=== PATIENT | female | born 1975 | race Caucasian/White ===

== ENCOUNTER 2021-06-26 00:32 | Outpatient (CLI) | payer MEDICARE, SELFPAY ==
--- NOTE | 2021-06-26 08:00 | DI.US_ITS ---
Exam(s) US PELVIS TRANSVAGINAL EXAM: US PELVIS TRANSVAGINAL CLINICAL HISTORY: Evaluate anatomy, endometrial stripe,dysfunctional uterine bleeding,n93.8 TECHNIQUE: Ultrasound of the pelvis was performed both transabdominal and transvaginal. COMPARISON: No exams were available for comparison FINDINGS: UTERUS: Nongravid and anteverted Measures 7.4 cm length x 4.3 cm AP x 5.1 cm wide. There are no uterine fibroids. Endometrial thickness measures 9 mm. Appears relatively homogeneous There is no fluid in the endometrial canal. CERVIX: Multiple nabothian cysts measuring up to 1.4 cm RIGHT OVARY: Measures 2.7 x 1.4 x 2.4 cm No significant cysts nor masses evident in the right ovary. LEFT OVARY: Measures 3.6 x 2.4 x 3 point cm There are 2 findings in the left ovary. One of these is a cyst measuring 1.3 x 1.4 cm. The other fi nding is partially cystic partially solid measuring 1.8 x 1.9 x 1.5 cm. CUL-DE-SAC: No free fluid evident. IMPRESSION: 1. Slightly thickened endometrium which appears relatively homogeneous. No uterine fibroids 2. There are 2 findings in the left ovary including a 13 x 14 millimeters cyst and a 2nd finding whic h is somewhat more complex measuring 18 x 19 x 15 millimeters and appearing partially cystic-partiall y solid. This may be a partially hemorrhagic cyst. Recommend repeat transvaginal ultrasound after a ppropriate clinical interval. 3. There is no free fluid evident in the adnexal regions nor within the cul-de-sac. DATA REPOSITORY:
== END 2021-06-26 00:52 ==
LOC: DI 00:32
PROVIDERS: Visit Provider Obstetrics & Gynecology
DX: N93.8 Other specified abnormal uterine and vaginal bleeding (principal); N83.292 Other ovarian cyst, left side; R93.89 Abnormal findings on diagnostic imaging of other specified body structures; N88.8 Other specified noninflammatory disorders of cervix uteri
CPT/HCPCS: 76830; 76856

== ENCOUNTER 2021-08-07 00:52 | Outpatient (CLI) | payer MEDICARE, SELFPAY ==
--- NOTE | 2021-08-07 07:30 | DI.US_ITS ---
Exam(s) US PELVIS TRANSVAGINAL EXAM: US PELVIS TRANSVAGINAL CLINICAL HISTORY: re-check cyst, H83.209. TECHNIQUE: Transabdominal and transvaginal pelvic ultrasound was performed using standard protocol. COMPARISON: US US PELVIS TRANSVAGINAL from 06/26/2021 FINDINGS: KIDNEYS: Kidneys are symmetric in size. No evidence of renal calculi. No evidence of hydronephrosis. No renal mass or cyst identified. UTERUS: Position: Anteverted. Size: 8.7 long by 4.5 AP by 5.8 transverse cm Endometrium: 0.4 cm. Normal for patient's menstrual status. Myometrium: There are several round well-circumscribed hypoechoic lesions in the myometrium suspiciou s for small fibroids. Cervix: Cervical nabothian cysts are present. OVARIES: Right: 2.2 x 2.4 x 1.7 cm Cyst or mass: No suspicious cystic or solid masses. Left: 2.2 x 2 x 1.9 cm Cyst or mass: No suspicious cystic or solid masses. The previously seen cyst on the left ovary has r esolved. There are small functional cyst present. The largest measures 9 mm. DOPPLER: Color: Symmetric and uniform flow to both ovaries. No hyperemia. CUL-DE-SAC: Free fluid: None. Other: None. IMPRESSION: 1. Normal sonographic appearance of the kidneys. 2. Small uterine fibroids. 3. Resolution of the left ovarian cyst. DATA REPOSITORY:
== END 2021-08-07 01:12 ==
LOC: DI 00:52
PROVIDERS: Visit Provider Obstetrics & Gynecology
DX: N83.202 Unspecified ovarian cyst, left side (principal); D25.9 Leiomyoma of uterus, unspecified
CPT/HCPCS: 76830; 76856

== ENCOUNTER 2021-08-13 13:17 | Outpatient (REF) | payer MEDICARE, SELFPAY ==
--- NOTE | 2021-08-13 13:00 | PAPFT_PTH ---
PATIENT: Renee Murphy LOC: [facility] U#:[id number] AGE/SX: 46/F ROOM: RE08/13/[address]: Lindy Darby DO : 1975 BED: DIS: 08/13/2021 SPEC #: [id number] RECD: 08/13/21 17:27 STATUS: DAVID REAnnabel #: [id number] LAWR[place]: 08/13/21 13:[address]: Lindy Darby DEPT: [facility] Cytology RECD BY: Maylin Ace Tissues: 1 - CX/ENDOCX FOR PAP SMEARS Procedures: PAP THIN PREP/UVM Screening HPV DNA PROBE Comments: [id number]
== END 2021-08-13 13:18 | disposition home or self-care (01) ==
LOC: LBN 13:17
PROVIDERS: PCP Obstetrics & Gynecology; Visit Provider Obstetrics & Gynecology
DX: Z12.4 Encounter for screening for malignant neoplasm of cervix (principal); Z11.51 Encounter for screening for human papillomavirus (HPV); N76.0 Acute vaginitis
CPT/HCPCS: 88142; 87624

== ENCOUNTER → 2021-08-17 00:18 | Outpatient (CLI) | payer MEDICARE, SELFPAY ==
--- NOTE | 2021-08-17 14:30 | DI.MAMMO_ITS ---
Exam(s) MAMMO SCREENING EXAM: MAMMO SCREENING CLINICAL HISTORY: screening. TECHNIQUE: Bilateral full field digital CC and MLO mammographic images were obtained with 3D tomosyn thesis and utilizing computer aided detection (CAD). COMPARISON: None. This is a baseline mammogram on this 46-year-old patient. FINDINGS: There are no new spiculated masses nor malignant appearing microcalcification groups. There is no significant architectural distortion nor skin thickening-retraction. IMPRESSION: No radiographic evidence of malignancy. BI-RADS Category 1 - Negative Breast Density - Category B - Scattered areas of fibroglandular density Breast density Category C or D implies that the patient has dense breast tissue. Dense breast tissue can make it harder to find cancer on a mammogram. Dense breast tissue is also associated with an incr eased risk of breast cancer. This information about the result of the mammogram report was provided to the patient to raise their awareness. Use this report when you speak with the patient about their risks for breast cancer, which includes their family history. At that time, you may recommend additional screening tests (Ultrasoun d or MRI) as these tests may add significant information. A negative radiographic report should not delay biopsy if a dominant or clinically suspicious mass is present. Up to ten percent of cancers are not identified on mammography. A negative report may reinforce clinical impression. Adenosis and dense breasts may obscure an underlying neoplasm. False positive reports average 6 to 10%. Patient will receive a letter notifying them of these results.
== END ==
PROVIDERS: PCP Obstetrics & Gynecology; Visit Provider Obstetrics & Gynecology
DX: Z12.31 Encounter for screening mammogram for malignant neoplasm of breast (principal)
CPT/HCPCS: 77063; 77067